=== PATIENT | female | born 1995 | race Caucasian/White ===

== ENCOUNTER → 2021-06-12 | Outpatient (CLI) | payer OTHER | LOC: M LABSMTC 13:41 | PROVIDERS: ATTEND Pediatrics | DX: Z20.822 Contact with and (suspected) exposure to COVID-19 (principal) | CPT/HCPCS: C9803; U0003 ==

== ENCOUNTER 2023-08-05 08:43 | Emergency (ER) | payer OTHER ==
[~2023-08-05] VITALS: Ht 162.6 cm; Wt 84.5 kg
[2023-08-05] MEDS ORDERED: ASPI-1 PO (08:50)
[2023-08-05] MEDS ORDERED: NAPR-837 PO (13:10)
[2023-08-05 13:17] VITALS: BP 131/80; TEMP 97.9; O2SAT 100
== END 2023-08-05 13:26 | disposition home or self-care (01) ==
LOC: M ED 08:43
DX: M79.631 Pain in right forearm (principal); Z91.013 Allergy to seafood; Z79.899 Other long term (current) drug therapy